=== PATIENT | male | born 1975 | race American Indian/Alaskan Native ===

== ENCOUNTER 2016-08-15 07:48 | Emergency (ER) | payer SELFPAY ==
[2016-08-15 08:04] LABS: Basophils % (Auto) 0.8 % (0.0-1.8); Eosinophils % (Auto) 1.4 % (0.0-4.3); Hematocrit 36.8 % (35.5-45.6); Hemoglobin 12.4 gm/dl (11.8-15.2); Mean Corpuscular HGB Conc 34 % (32-34); Mean Corpuscular Hemoglobin 33 pg (28-32); Mean Corpuscular Volume 97 fl (84-94); Platelet Count 206 K/mm3 (140-440); Red Blood Count 3.81 M/mm3 (3.65-5.03); Red Cell Distribution Width 13.4 % (13.2-15.2); White Blood Count 6.5 K/mm3 (4.5-11.0)
[2016-08-15] MEDS ORDERED: ACTIVASE ONE (08:04)
[2016-08-15] MEDS ORDERED: NACL 0.9% IV ONE (08:06)
[2016-08-15] MEDS ORDERED: ACTIVASE IV ONE ×2 (08:06)
--- NOTE | 2016-08-15 08:08 | Cat Scan Report ---
CT HEAD WITHOUT CONTRAST: HISTORY: Stroke. No comparison at this facility. The right MCA is slightly hyperdense compared to the left MCA consistent with thrombosis. There is no evidence for hemorrhage, mass, extra-axial fluid collection or large area of acute ischemia in the brain parenchyma. There is a chronic infarct in the right posterior frontal lobe measuring 5.1 x 2.6 cm in axial plane. A smaller cortical infarct in the right posterior temporal lobe measures 1 x 2 cm. The remaining brain parenchyma is within normal limits. Ventricular size is normal. The posterior fossa and contents are within normal limits. The mastoid air cells and visualized portions of the sinuses are normal. IMPRESSION: Hyperdense right MCA consistent with acute ischemic infarct. No evidence for hemorrhage. Chronic infarcts in the right MCA distribution as outlined above. These findings were discussed with Dr. Nogueira in the emergency department at 0806 hrs.
[2016-08-15 08:10] LABS: Anion Gap 15 mmol/L; Blood Urea Nitrogen 22 mg/dL (9-20); Calcium 8.7 mg/dL (8.4-10.2); Carbon Dioxide 24 mmol/L (22-30); Chloride 104.7 mmol/L (98-107); Glucose 99 mg/dL (75-100); Potassium 3.9 mmol/L (3.6-5.0); Sodium 140 mmol/L (137-145)
[2016-08-15 08:13] LABS: INR 1.13 (0.87-1.13)
[2016-08-15 08:14] LABS: Partial Thromboplastin Time 33.7 Sec. (24.2-36.6)
--- NOTE | 2016-08-15 08:30 | Emergency Department Report ---
HPI - General Chief Complaint: Neuro Symptoms/Deficit Time Seen by Provider: 08/15/16 07:53 - HPI HPI: The patient is a 40-year-old male presents for evaluation of strokelike symptoms. The patient reports sudden onset of severe weakness approximately 30 minutes to 1 hour prior to arrival. He states that his symptoms began after arriving home from working an overnight shift. He experienced constant and severe weakness of the left arm and leg, exacerbated with attempted movement. The patient denies fever, head injury, headache, neck pain, neck stiffness, vision or hearing changes, smell or taste changes, paresthesias, slurred speech , seizure-like activity, urine or bowel incontinence or retention, or seizure- like activity. Per EMS the patient was found with altered mental status, inability to follow commands, facial drooping, and difficulty tolerating secretions. ED Past Medical Hx - Past Medical History Hx Hypertension: Yes - Social History Smoking Status: Never Smoker - Medications Home Medications: Home Medications Medication Instructions Recorded Confirmed Last Taken Type Loratadine [Claritin] 15 ml PO ONCE 04/19/13 04/19/13 04/19/13 22:20 History 15ml hydrOXYzine HCL [Atarax] 25 mg PO Q6HR PRN #10 tablet 04/19/13 Unknown Rx predniSONE [Deltasone] 3 tab PO QDAY #15 tab 04/19/13 Unknown Rx Lisinopril [Zestril TAB] 20 mg PO QDAY #30 tablet 04/20/13 Unknown Rx ED Review of Systems ROS: Stated complaint: CVA Other details as noted in HPI Constitutional: denies: fever ENT: denies: throat or neck pain Respiratory: denies: cough, shortness of breath Cardiovascular: denies: chest pain Endocrine: denies unexplained weight loss or gain Gastrointestinal: denies: abdominal pain, nausea Genitourinary: denies: dysuria Musculoskeletal: denies: leg swelling Skin: denies: rash Neurological: reports weakness denies: headache Hematological/Lymphatic: denies: easy bleeding or easy bruising Psych: denies sadness or hopelessness Physical Exam - Physical Exam Vital Signs: Vital Signs 08/15/16 08/15/16 07:59 08:00 Pulse Rate 61 Respiratory 18 12 Rate Blood Pressure 122/78 Physical Exam: General: well-nourished, well-developed, no acute distress Head: Normocephalic, atraumatic Eyes: normal sclera, PERRL, EOM intact ENT: Mucous membranes are pink and moist Neck: trachea midline, neck supple, No neck stiffness, no cervical adenopathy Respiratory: Breath sounds equal bilaterally, no wheezing, rales, or rhonchi Cardio: S1 and S2 present, no murmurs, rubs, gallops, capillary refill is brisk Abdomen: Normoactive bowel sounds, soft abdomen, no rigidity, no guarding or rebound tenderness Chest WALL/Back: No tenderness to palpation of the chest wall, no CVA tenderness with percussion Musc: No pitting edema Skin: No rash Neuro: alert oriented x4, normal cognition, speech normal, no facial drooping, no uvula or tongue deviation on protrusion, no deficit with rotation of neck or shoulder shrug, 1+ pronator drift in the left arm, 2+ pronator drift in the left leg, no obvious gross motor deficit in the right upper or lower extremities with flexion or extension at the shoulder, elbow, wrist, hip, knee, or ankle bilaterally, no obvious gross sensation deficit, 2+ symmetric reflexes on DTR testing, no coordination deficit with [id number] or [id number] testing, Babinski downgoing, NIHSS 4 Psych: normal affect ED Course Vital Signs 08/15/16 08/15/16 07:59 08:00 Pulse Rate 61 Respiratory 18 12 Rate Blood Pressure 122/78 ED Medical Decision Making - Lab Data Result diagrams: 08/15/16 07:45 08/15/16 07:45 - Medical Decision Making The patient was seen and examined by myself. The patient is placed on a surveillance system monitor and continuous pulse ox. On initial evaluation, the patient was found to be in no distress. Evaluation orders were placed. CT scan the head reveals a right hyperdense MCA lesion, consistent with acute ischemic stroke. The on-call neurologist Dr. Dodd is contacted. He evaluates the patient. He agrees with administration of TPA. The patient is administered TPA within 60 minute window. Multiple bedside assessments were performed to assess patient responsiveness to TPA. On reevaluation the patient's found to have decreased responsiveness. CT angiogram of the head and neck is obtained and reveals a complete occlusion of the right MCA. The on-call neurologist at the [facility] Dr. Odonnell was contacted. She reviewed CTA images. She agreed to accept transfer of the patient for potential thrombus removal. The patient is transferred in serious condition. Critical care attestation.: If time is entered above; I have spent that time in minutes in the direct care of this critically ill patient, excluding procedure time. ED Disposition Clinical Impression: Acute ischemic stroke, Thrombosis of right middle cerebral artery Disposition: [id number] ANOTHER TYPE [facility]TH[facility]ARE Is pt being admited?: Yes Does the pt Need Aspirin: Yes Condition: Serious Referrals: PRIMARY CARE, [Primary Care Provider] - 3-5 Days Time of Disposition: 08:29
--- NOTE | 2016-08-15 08:53 | Admit Criteria Form ---
Admission Criteria Documentation: STROKE: ISCHEMIC Clinical Indications for Admission to Inpatient Care (Place 'X' for any and all applicable criteria): Admission is indicated for ANY ONE of the following(1)(2)(3)(4): [X ]I. Acute stroke Extended stay beyond goal length of stay may be needed for(1)(2) [ ]a) Major deficit or clinical deterioration [ ]b) Hospital-acquired infection (eg, urinary tract infection, pneumonia) [ ]c) Embolic cause of stroke [ ]d) Venous thromboembolism(9) [ ]e) Seizures [ ]f) Bleeding (eg, cerebral) [ ]g) Increased intracranial pressure [ ]h) Comorbidities [ ]i) Surgical intervention The original [facility] content created by [employer] has been revised. The portions of the content which have been revised are identified through the use of italic text or in bold, and [facility] has neither reviewed nor approved the modified material. All other unmodified content is copyright [facility]. Please see references footnoted in the original [facility] edition 2016 Admission Criteria Met: Yes
[2016-08-15] MEDS ORDERED: NACL ONE (09:15)
--- NOTE | 2016-08-15 10:15 | Cat Scan Report ---
CTA NECK: HISTORY: Stroke. TECHNIQUE: Helical CT following IV contrast. Sagittal and coronal reformatted images. 3D volume rendering technique. Stenosis was calculated using NASCET criteria. FINDINGS: The visualized aortic arch, innominate artery and proximal bilateral subclavian arteries are widely patent with less than 20% stenosis. Within the right carotid system: There is no evidence for significant atherosclerotic disease. There is less than 20% stenosis throughout the right carotid system. Within the left carotid system: There is no evidence for significant atherosclerotic disease. There is less than 20% stenosis throughout the left carotid system. The cervical vertebral arteries are patent with less than 20% stenosis. IMPRESSION: Unremarkable CTA of the neck.
--- NOTE | 2016-08-15 10:17 | Cat Scan Report ---
CTA HEAD: HISTORY: Stroke. TECHNIQUE: Helical CT images after IV contrast with 0.625mm reformations. Sagittal and coronal reformats. Rotational MIP images. 3D volume rendering technique. FINDINGS: There is complete thrombosis of the right M2/M3 segments which correlates to the hyperdense right MCA seen on noncontrast CT head. The remainder of the anterior and posterior circulations are widely patent with less than 20% stenosis. No dissection or or aneurysm. IMPRESSION: Complete thrombosis of the right MCA as described. These findings were discussed with Dr. Nogueira in the emergency department at 1012 hrs.
[2016-08-15] MEDS ORDERED: NACL 0.9% 1000 ML 1,000 ML IV ONE (10:47)
[2016-08-15 11:37] VITALS: BP 134/81
== END 2016-08-15 11:48 | disposition other institution (70) ==
LOC: ED 07:48
DX: I63.9 Cerebral infarction, unspecified (principal); I66.01 Occlusion and stenosis of right middle cerebral artery; I10 Essential (primary) hypertension
CPT/HCPCS: 36415; 37212; 70450; 70496; 70498; 80048; 82962; 84484; 85025; 85610; 85670; 85730; 93005; 93010; 96374; 99285; J2997; J7030; Q9967